=== PATIENT | male | born 2000 | race Caucasian/White ===

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

== ENCOUNTER 2023-02-09 21:02 | Emergency (ER) | payer OTHER, SELFPAY ==
--- NOTE | ~2023-02-09 | XR_ITS ---
EXAMINATION: XR knee LT min 4V DATE: 02/10/2023 01:13 INDICATION: Left knee pain. Fall. Laceration. TECHNIQUE: 4 views of left knee were obtained. COMPARISON: Left knee radiographs 08/23/2020 FINDINGS: Bone alignment is normal. No fracture. Joint spaces are normal. No knee joint effusion. The re is a laceration anterior to the tibial tubercle. IMPRESSION: 1. No fracture or radiopaque foreign body. Reviewed, dictated and finalized at location A.
[2023-02-09 21:06] VITALS: BP 132/78; PULSE 95; RESP 15; TEMP 36.4; O2SAT 100
--- NOTE | 2023-02-10 00:20 | ED.WOUNDLAC ---
HPI - Wound/Laceration General Chief Complaint: Wound/Laceration <ALEN Vaughan Last Filed: 02/10/23 02:20> Stated Complaint: cut on knee from unloading a fridge at work <ALEN Vaughan Last Filed: 02/10/23 02:20> Time Seen by Provider: 02/10/23 00:11 <ALEN Vaughan Last Filed: 02/10/23 02:20> History of Present Illness HPI narrative: 22-year-old male reports for evaluation for a laceration to his left knee that occurred prior to arrival. Patient states he was unloading things off the back of a pickup truck at work, there was water on the truck and he slipped off the truck. States he landed on his knees. He is reporting pain to his knee and a 1.5 cm laceration. States his tetanus is up-to-date. Reports he did not hit his head on the ground but did hit his head on a refrigerator on the back of the truck when he fell. He denies loss of consciousness, vision changes, focal numbness or weakness. Denies other injuries acquired in the fall. <ALEN Vaughan Last Filed: 02/10/23 02:20> Related Data Allergies/Adverse Reactions: Allergies Allergy/AdvReac Type Severity Reaction Status Date / Time No Known Allergies Allergy Verified 02/10/23 00:32 <ALEN Vaughan Last Filed: 02/10/23 02:20> Review of Systems Review of Systems: CONSTITUTIONAL: Denies fever, chills EYES: Denies visual changes, redness, or discharge. ENT: Denies rhinorrhea, congestion, sore throat, or otalgia. CARDIOVASCULAR: Denies chest pain, palpitations, or edema. RESPIRATORY: Denies cough or dyspnea. GASTROINTESTINAL: Denies abdominal pain, nausea, vomiting, or diarrhea. GENITOURINARY: Denies dysuria or hematuria. SKIN: See HPI MUSCULOSKELETAL: Denies back pain, joint pain, or myalgia. NEUROLOGIC: See HPI PSYCHIATRIC: Denies anxiety or depression. <ALEN Vaughan Last Filed: 02/10/23 02:20> [facility] Family History Family History: Family History Other Family history non-contributory <Shivani Campos PA-C - Last Filed: 02/10/23 02:20> Exam Narrative: GENERAL: Well-appearing, in no acute distress. Patient resting comfortably in exam chair. He is pleasant and conversational. HEAD: Normocephalic EYES: PERRLA, EOMI ENT: Nares clear. Mucous membranes moist. Oropharynx without tonsillar hypertrophy exudate or other lesions. No hemotympanum. No raccoon eyes or ricci sign. NECK: Supple. No midline cervical spinous tenderness, step-offs or deformities. CHEST: No respiratory distress. Clear to auscultation, no adventitious breath sounds. HEART: Regular rate and rhythm. No murmur heard. Normal peripheral pulses. ABDOMEN: Soft, nontender, normal active bowel sounds. EXTREMITIES: Tenderness to the left knee medial joint line with full range of motion. Patient ambulatory with no difficulty. DP pulse 2+. Sensation intact. SKIN: 1.5 cm linear laceration to the left anterior knee without visualization of deep structures or foreign bodies. NEURO: No focal deficits. Alert and oriented x3. Cranial nerves II through XII intact. Strength 5/5 in BUE and BLE. Sensation intact. PSYCH: Normal mood and affect. <Shivani Campos PA-C - Last Filed: 02/10/23 02:20> Course [employer]ER/PA Physician Supervision This is a was performed by both a physician and an APC. I performed all aspects of the MDM as documented w/ the following additions: 22-year-old presenting with knee laceration. Laceration was repaired the patient was discharged. All questions answered. Patient in agreement w/ disposition. <Ashok Che MD - Last Filed: 02/10/23 06:30> Vital Signs Vital signs: Vital Signs Temperature 97.6 F 02/09/23 21:06 Pulse Rate 95 02/09/23 21:06 Respiratory Rate 15 02/09/23 21:06 Blood Pressure 132/78 02/09/23 21:06 Pulse Oximetry 100 02/09/23 21:06 Oxygen Delivery Room Air
[2023-02-10 02:28] VITALS: BP 132/78; PULSE 78; RESP 15; TEMP 36.5; O2SAT 100
== END 2023-02-10 02:29 | disposition home or self-care (01) ==
PROVIDERS: Emergency Provider Physician Assistant; PCP Family Medicine
DX: S81.012A Laceration without foreign body, left knee, initial encounter (principal); S80.02XA Contusion of left knee, initial encounter; S09.90XA Unspecified injury of head, initial encounter; W17.89XA Other fall from one level to another, initial encounter
CPT/HCPCS: 12013; 12031; 73564; 99283

== ENCOUNTER 2024-02-15 05:53 | Emergency (ER) | payer OTHER, SELFPAY ==
[2024-02-15] VITALS (11 sets, daily range): BP systolic 133–157; BP diastolic 63–93; PULSE 66–99; RESP 12–20; TEMP 36.6; O2SAT 96–100
--- NOTE | ~2024-02-15 | XR_ITS ---
EXAMINATION: XR chest 1V portable DATE: 02/15/2024 06:40 INDICATION: Chest pain. Shortness of breath. TECHNIQUE: A single frontal view of the chest was obtained. COMPARISON: Chest 2 views 05/16/2013 FINDINGS: There is no pneumonia, pleural effusion, or pneumothorax. The heart size is normal. IMPRESSION: 1. No acute cardiopulmonary disease. Reviewed, dictated and finalized at location A.
--- NOTE | 2024-02-15 05:54 | ECG_ITS ---
Test Date: 2024-02-15 06:04:45 Measurements Intervals [place] Rate: 75 P: 32 ND: 166 QRS: -18 QRSD: 97 T: 26 QT: 373 QTc: 417 Interpretive Statements SINUS RHYTHM NONSPECIFIC ST ELEVATION [0.05+ mV ST ELEVATION] ABNORMAL ECG Electronically Signed On 02-15-2024 11:00:34 CDT by Slava Rawls M.D.
--- NOTE | 2024-02-15 06:04 | ED.GENADULT ---
HPI - General Adult General Chief complaint: Chest Pain <Ashok Che MD - Last Filed: 02/15/24 19:05> Stated complaint: CP, sob <Ashok Che MD - Last Filed: 02/15/24 19:05> Time Seen by Provider: 02/15/24 06:11 <Ashok Ceh MD - Last Filed: 02/15/24 19:05> History of Present Illness HPI narrative: This is a 23-year-old male presenting ED with chief complaint of chest pain and shortness of breath. 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 Denied time there inhaling artificial smoke. After that the patient started developing aching pain in the center of his chest. It is nonradiating, 4 out 10 intensity and constant. He feels like it has been getting worse throughout the week. He has never had pain like this before exacerbating or alleviating factors. Patient denies fevers chills viral symptoms, productive cough, lower extremity edema, risk factors for DVT, nausea vomiting or diarrhea. <Ashok Che MD - Last Filed: 02/15/24 19:05> Related Data Allergies/adverse reactions: Allergies Allergy/AdvReac Type Severity Reaction Status Date / Time No Known Allergies Allergy Verified 02/15/24 13:56 <Ashok Che MD - Last Filed: 02/15/24 19:05> [facility] Past Medical History Medical History: Medical History Allergic rhinitis Freddie-Schlatter's disease <Ashok Che MD - Last Filed: 02/15/24 19:05> Surgical History Surgical History: Surgical History History of oral surgery cyst removal X2 2014 <Ashok Che MD - Last Filed: 02/15/24 19:05> Family History Family History: Family History Father No problems noted. Mother No problems noted. Other Family history non-contributory <Ashok Che MD - Last Filed: 02/15/24 19:05> Social History Social History: Social History Smoking status: Never smoker Alcohol intake: never Substance use: never Substance use type: does not use Do You Feel Safe in your Home?: Yes Lack of Transportation: No Lack of Food: Never True Current Housing: I Have Housing Concerned About Future Housing: No Difficulty Paying Gas/Electric Bills: No Difficulty Paying for Meds: No Currently Unemployed: No Education: Associate Degree Difficulty w/ Childcare or Family Care: No Living arrangements: with family Occupation/Education: occupation Gender identity (if verbalized by the patient): Male Sexual Orientation (if Verbalized by the Patient): Straight or Heterosexual <Ashok Che MD - Last Filed: 02/15/24 19:05> Exam Narrative: APPEARANCE: No apparent distress. Head: atraumatic. EYES: EOMI, NOSE: Atraumatic NECK: Trachea midline RESPIRATORY: No tachypnea, no wheezing or rhonchi, 100% on room air CARDIOVASCULAR: RRR, no peripheral ABDOMINAL: Non-distended soft nontender MUSCULOSKELETAl: No obvious deformities NEURO: Alert. Moving 4/4 extremities SKIN:: Warm, dry. Normal color PSYCHIATRIC: Normal affect <Ashok Che MD - Last Filed: 02/15/24 19:05> Course Course Emergency Course: Patient is signed out to me pending 2nd troponin. He is being treated for chemical pneumonitis bronchospasm. Second troponin is normal. I did reassessed patient at bedside after giving additional albuterol treatment. He is resting comfortably. He states he continues to have some difficulty breathing and lung irritation but is amenable to and stable for discharge. He has an appointment this afternoon at 1:00 p.m. with his primary care physician Dr Batista. <Huong Feng MD - Last Filed: 02/15/24 09:37> Vital Signs Vital signs: Vital Signs Pulse Rate 77 02/15/24 06:01 Respiratory Rate 12 02/15/24 06:01 Blood Pressure 142/93 H 0
[2024-02-15 06:17] LABS: Basophils Percent Auto 0.2 % (0.2-1.2); Eosinophils Absolute Auto 0.2 K/mm3 (0-0.3); Eosinophils Percent Auto 2.3 % (0-4.4); Hemoglobin 16.4 g/dL (14.0-18.0); Immature Granulocyte Absolute 0.01 K/mm3 (0.00-0.031); Immature Granulocyte Percent A 0.1 % (0-0.5); Lymphocytes Absolute Auto 2.69 K/mm3 (0.9-3.2); Lymphocytes Percent Auto 32.9 % (18.3-44.2); Mean Corpuscular HGB Conc 33.5 g/dl (32-36); Mean Corpuscular Hemoglobin 27.8 pg (26-34); Mean Corpuscular Volume 83.1 fl (80-100); Mean Platelet Volume 10.7 fl (7.4-10.4); Monocytes Absolute Auto 0.6 K/mm3 (0.1-0.6); Monocytes Percent Auto 6.7 % (2.6-8.5); Neutrophils Absolute Auto 4.7 K/mm3 (1.3-6.7); Neutrophils Percent Auto 57.8 % (45.5-73.1); Platelet Count Result 257 k/mm3 (150-375); Red Cell Distribution Width 13.7 % (11.5-14.5); White Blood Count 8.2 K/mm3 (4.5-10.0)
[2024-02-15] MEDS: ACETAMINOPHEN 500 MG TABLET 1000 MG PO (06:18)
[2024-02-15] MEDS: ASPIRIN 81 MG CHEWABLE TABLET 324 MG PO (06:18)
[2024-02-15] MEDS: dexAMETHasone SOD PHOS INJ 10 MG/ML 1 ML VIAL IV PUSH (06:19)
[2024-02-15] MEDS: KETOROLAC 15 MG/ML VIAL (*BKC) IV PUSH (06:19)
[2024-02-15] MEDS: MAGNESIUM SULF 2 GM/WATER 50ML 2 GM/50 ML BAG IVPB (06:19)
[2024-02-15] MEDS: IPRATROPIUM 0.5 MG/ALBUTEROL SULFATE 2.5 MG AMPUL.NEB 3 ML 12 ML INHALATION (06:26)
[2024-02-15 06:30] LABS: INR 0.9
[2024-02-15 06:31] LABS: Partial Thromboplastin Time 30.7 Seconds (22.3-36.8)
[2024-02-15 06:33] LABS: Base Excess ABG 0.1 mEq/l (+/-2.0); Fractional Inspired Oxygen 21 %; HCO3 ABG 23.6 mEq/l (22.0-26.0); Oxygen Content ABG 22.1 %vol (16.0-22.0); Oxygen Saturation ABG 97.7 % (95.0-100.0); Oxyhemoglobin 97.2 % THb (90.0-100.0); PCO2 ABG 35.5 mmHg (35.0-45.0); PO2 ABG 98.2 mmHg (80.0-100.0); PO2 FiO2 Ratio Arterial Blood 4.68 %; Total Hemoglobin 16.1 g/dL (12.0-18.0); pH ABG 7.441 (7.350-7.450)
[2024-02-15 06:34] LABS: Modified Allen's Test Pass; Site Drawn RIGHT RADIAL
[2024-02-15 06:39] LABS: Troponin I < 0.012 ng/mL (0.000-0.034)
[2024-02-15 06:54] LABS: Influenza A QL RT-PCR Negative (Negative); Influenza B QL RT-PCR Negative (Negative); RSV RNA, RT-PCR Negative (Negative); SARS-CoV-2 RNA PCR Negative (Negative)
[2024-02-15 08:07] LABS: Alanine Aminotransferase 23 U/L (6-50); Albumin Level 4.7 g/dL (3.5-5.1); Alkaline Phosphatase 97 U/L (38-126); Anion Gap 13 mmol/L (4-12); Aspartate Amino Transferase 23 U/L (17-59); Bilirubin,Total 0.4 mg/dL (0.2-1.3); Blood Urea Nitrogen 13 mg/dL (9-20); Calcium 9.4 mg/dL (8.4-10.2); Carbon Dioxide 25 mmol/L (22-30); Chloride 102 mmol/L (98-107); Estimated CRCL calculation 128 ml/min; Estimated Glomerular Filt Rate > 60; Glucose 101 mg/dL (65-110); Lipase 87 U/L (23-300); Potassium 3.7 mmol/L (3.4-5.0); Sodium 140 mmol/L (137-145)
[2024-02-15] MEDS: ALBUTEROL SULFATE NEB 2.5 MG/3 ML INH INHALATION (08:07)
--- NOTE | 2024-02-15 08:35 | ECG_ITS ---
Test Date: 2024-02-15 08:45:55 Measurements Intervals [place] Rate: 96 P: 30 AR: 124 QRS: -16 QRSD: 95 T: 29 QT: 369 QTc: 467 Interpretive Statements SINUS RHYTHM LEFTWARD AXIS NONSPECIFIC ST ABNORMALITY ABNORMAL ECG Electronically Signed On 02-15-2024 11:01:58 CDT by Slava Rawls M.D.
[2024-02-15 09:15] LABS: Troponin I < 0.012 ng/mL (0.000-0.034)
== END 2024-02-15 09:53 | disposition home or self-care (01) ==
PROVIDERS: Emergency Provider Emergency Medicine; PCP Family Medicine
DX: R07.89 Other chest pain (principal); J68.0 Bronchitis and pneumonitis due to chemicals, gases, fumes and vapors; Z20.822 Contact with and (suspected) exposure to COVID-19
CPT/HCPCS: 36415; 36600; 71045; 71275; 80053; 82805; 83690; 84484; 85025; 85610; 85730; 87637; 93005; 94640; 96365; 96366; 96375; 99284; A9270; J1100; J1885; J3475; Q9967

== ENCOUNTER 2024-02-15 15:27 | Outpatient (CLI) | payer OTHER, SELFPAY ==
--- NOTE | ~2024-02-15 | CT_ITS ---
EXAMINATION: CTA chest PE protocol DATE: 02/15/2024 16:04 INDICATION: Shortness of breath. TECHNIQUE: Computed tomography angiography (CTA) of the chest was performed with 100 mL Omnipaque-350 intravenous contrast timed to evaluate the pulmonary arteries. Coronal maximum intensity projection 3D-reconstructions were created by the technologist. Automated exposure control and iterative reconst ruction technique were employed. The dose-length product was 757.47 mGy-cm. COMPARISON: None. FINDINGS: There is no pneumonia or pleural effusion. The heart size is normal. No pericardial effusio n. There is no pulmonary embolus. There is bilateral gynecomastia. There is mild chronic anterior wed ging of multiple vertebral bodies. IMPRESSION: 1. No pulmonary embolus. Reviewed, dictated and finalized at location A. IMPRESSION: 1. No pulmonary embolus.
== END 2024-02-15 15:28 | disposition home or self-care (01) ==
LOC: ANHIMG 15:30
PROVIDERS: PCP Family Medicine; Visit Provider Family Medicine
DX: R06.02 Shortness of breath (principal)
CPT/HCPCS: 71275; Q9967

== ENCOUNTER 2024-02-26 13:26 | Outpatient (CLI) | payer OTHER, SELFPAY ==
--- NOTE | 2024-03-01 11:22 | WPDPFTINT ---
PFT Procedure Performed PFT Procedure Performed Spirometry with Pre/Post Bronchodilator Plethysmography (Lung Vol) Diffusing Cap (DLCO) Flow Vol Loop PFT Interpretation This is a pulmonary function test with pre and post-bronchodilator spirometry, plethysmography and diffusing capacity. The test was performed and results interpreted in accordance with the 2019 and 2005 ATS/ERS Task Force guidelines respectively using the Global Lung Function Initiative-2012 reference equations. Patient demonstrated good effort and cooperation. Reproducibility criteria were met. The quality of the pre bronchodilator spirometry maneuver was Grade A and post bronchodilator spirometry maneuver was Grade A. Findings: Spirometry: The contour the inspiratory and expiratory flow tracing are normal. The pre bronchodilator FVC is 6.06 L, 107% predicted. The pre bronchodilator FEV1 is 4.79 L, 100% predicted. The pre bronchodilator FEV1: FVC ratio 79%. The post bronchodilator FVC is 6.07 L, representing no change. The post bronchodilator FEV1 is 4.90 L, representing a 2% increase. The post bronchodilator FEV1: FVC ratio is 81%. Plethysmography: The total lung capacity is 7.63 L, 108% predicted. The functional residual composite a capacity is 2.70 L, 80% predicted. The residual volume is 1.52 L, 103% predicted. Diffusing capacity: The diffusing capacity unadjusted for hemoglobin and carboxyhemoglobin is 38.9, 103% predicted. The diffusing capacity adjusted for alveolar volume is 7.69, 143% predicted. Impression: The spirometry is normal without evidence of an obstructive abnormality. There is no significant improvement after inhaling a single dose of albuterol. The lung volumes are normal. The diffusing capacity unadjusted for hemoglobin and carboxyhemoglobin is normal and is increased when adjusted for alveolar volume. There are no prior studies for comparison
== END 2024-02-26 13:27 | disposition home or self-care (01) ==
LOC: ANHPFT 13:27
PROVIDERS: PCP Family Medicine; Visit Provider Family Medicine
DX: R06.02 Shortness of breath (principal)
CPT/HCPCS: 94060; 94726; 94729

== ENCOUNTER 2024-05-16 12:49 | Outpatient (CLI) | payer OTHER, SELFPAY ==
[2024-05-16] MEDS: METHACHOLINE CHLORIDE 18 ML VIAL.NEB INHALATION (13:13)
--- NOTE | 2024-05-16 16:02 | WPDMETH ---
Methacholine Procedure Perform Procedure Performed Methacholine Challenge Methacholine Challenge Methacholine Challenge: This is a methacholine challenge test. The test was performed and interpreted in accordance with the 2017 ERS technical standard, endorsed by the ATS, using the GLI 2012 reference equations. Testing was performed with increasing doses of nebulized methacholine following a quadrupling dosage protocol. The methacholine dose was delivered via the logolineupist nebulizer using a 1-minutes tidal breathing protocol. The best post-methacholine FEV1 values were used to determine the change from the post diluent FEV1. The delivered dose of methacholine was used to calculate the provocative dose causing a 20% fall in FEV1 (PD20). Findings: Baseline FEV1 4.48 L, 93% predicted. Post diluent FEV1 4.60 L Post 1.81 mcg methacholine FEV1 4.60 L, decreased 0% Post 7.26 mcg methacholine FEV1 4.61 L, decreased 0% Post 29.03 mcg methacholine FEV1 4.52 L, decreased 2% Post 116.1 mcg methacholine FEV1 4.47 L, decreased 3% Post 464.4 mcg methacholine FEV1 4.46 L, decreased 3% Post albuterol nebulization FEV1 4.53 L Impression: The PD20 is > 400 mcg which is categorized as normal airway hyperresponsiveness. There are no prior methacholine challenge studies for comparison
== END 2024-05-16 12:50 | disposition home or self-care (01) ==
LOC: ANHPFT 12:49
PROVIDERS: PCP Family Medicine; Visit Provider Nurse Practitioner Family
DX: R06.09 Other forms of dyspnea (principal)
CPT/HCPCS: 94070; J7674

== ENCOUNTER 2025-02-09 11:08 | Emergency (ER) | payer OTHER, SELFPAY ==
--- NOTE | 2025-02-09 11:10 | ED.DIZZY ---
HPI - Dizziness General Chief Complaint: Dizziness Stated Complaint: Dizzy Time Seen by Provider: 02/09/25 11:25 Source: patient Mode of arrival: ambulatory Limitations: no limitations History of Present Illness HPI Narrative: Rory is a 24-year-old male patient presenting to the clinic today with complaints of dizziness, blurred vision, brain fog, and temporal headache intermittently x3 weeks. He reports he feels as though he is having dizziness (feels drunk), forgetting things, having blurred vision while having headache intermittently. Denies any the symptoms currently. Checked his blood sugar and it was 96. 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 Denies any chest pain or shortness of breath during these episodes. Has not taken any medications to treat his symptoms. Past medical history is asthma. Related Data Home Medications ?Medication ?Instructions ?Recorded ?Confirmed ?Last Taken ?Type No Home Medications 02/09/25 02/09/25 Unknown History Allergies Allergy/AdvReac Type Severity Reaction Status Date / Time No Known Allergies Allergy Verified 02/09/25 11:23 Review of Systems Review of Systems: Pertinent positives per HPI. Patient denies any fever, chills, rash, cough, runny nose, sore throat, shortness of breath, chest pain, palpitations, nausea, vomiting, diarrhea, constipation, abdominal pain, or any urinary issues. [facility] Past Medical History Medical History Freddie-Schlatter's disease Allergic rhinitis Surgical History Surgical History History of oral surgery cyst removal X2 2014 Family History Family History Father No problems noted. Mother No problems noted. Other Family history non-contributory Social History Social History Smoking status: Never smoker Alcohol intake: never Substance use: never Substance use type: does not use Do You Feel Safe in your Home?: Yes Lack of Transportation: No Lack of Food: Never True Current Housing: I Have Housing Concerned About Future Housing: No Difficulty Paying Gas/Electric Bills: No Difficulty Paying for Meds: No Currently Unemployed: No Education: Associate Degree Difficulty w/ Childcare or Family Care: No Living arrangements: with family Occupation/Education: occupation Gender identity (if verbalized by the patient): Male Sexual Orientation (if Verbalized by the Patient): Straight or Heterosexual Comments At the time of my signature, I reviewed and agree with the nursing past medical, surgical, social, and family history. There is no relevant family history pertinent to the patient complaint. Exam Narrative: General: Well-developed, well nourished, in no apparent distress Head: Normocephalic, atraumatic Eyes: Pupils equally round and reactive to light bilaterally, EOM intact, sclera and conjunctive clear, no discharge, lids normal Ears: TMs intact and clear, ear canals ceruminous, no drainage, grossly hearing normal. Nose: Nares patent, no discharge, no inflammation, no sinus tenderness. Mouth: Oropharynx without lesions or masses, good dentition, MMM. Tongue midline, even rise and fall of uvula Neck: Supple, trachea midline, no enlargement of anterior or posterior cervical nodes, no thyroid masses or goiter palpable. Cardio: Regular rate and rhythm, s1 and s2 normal, no murmur appreciated. Resp: Clear to auscultation bilaterally anteriorly and posteriorly, no rhonchi, rales, wheezing or rubs Musculoskeletal: No deformity, non-tender to palpation, grossly normal range of motion, muscle strength strong and equal, peripheral pulse strong, no edema, no cyanosis, normal gait and station Neuro: Alert and oriented x4 with normal speech, no focal deficits, cranial nerves I through XII intact, muscle strength 5 out of 5, sensation intact bilaterally, negative Romberg test Course Course Emergency Course: Portions of this record may have been created with voice recognition software. Level of Care: Express Care Visit Vital Signs Vital signs: Vital Signs Temperature 36.4 C L 02/09/25 11:23 Pulse Rate 82 02/09/25 11:23 Respiratory Rate 18 02/09/25 11:23 Blood Pressure 146/73 H 02/09/25 11:23 Pulse Oximetry 98 02/09/25 11:23 Oxygen Delivery Room Air 02/09/25 11:23 Temperature 36.4 C L 02/09/25 11:23 Pulse Rate 82 02/09/25 11:23 Respiratory Rate 18 02/09/25 11:23 Blood Pressure 146/73 H 02/09/25 11:23 Pulse Oximetry 98 02/09/25 11:23 Oxygen Delivery Room Air 02/09/25 11:23 Vital signs reviewed Transfer Transfered to: [facility] Transportation: Other (Private car) Transfer rationale: Dizziness, brain fog, blurred vision, temporal headache Accepting physician: Rupal-TERA Transfer comments: Private car MDM - Dizziness MDM Narrative Medical decision making narrative: At the time of visit patient is resting comfortably on the exam table. Patient appears to be nontoxic. Complaints of dizziness, blurred vision, brain fog, and temporal headache intermittently x3 weeks. He reports he feels as though he is having dizziness (feels drunk), forgetting things, having blurred vision while having headache intermittently. Denies any the symptoms currently. Checked his blood sugar and it was 96. 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 Denies any chest pain or shortness of breath during these episodes. Has not taken any medications to treat his symptoms. Past medical history is asthma. Plan: Neuro exam negative in the clinic today. Due to patient's symptoms recommend transfer to the ER for further evaluation. Patient would like to go to [facility]. Contacted Rupal HALEY at [facility] and report was given for continuity of care. Rupal accepts patient for transfer Differential Diagnosis Differential diagnosis: Likely adverse reaction to drug, benign paroxysmal positional vertigo, orthostatic hypotension, vertebral basilar insufficiency, cerebrovascular accident, acute vestibular neuronitis, transient cerebral ischemia and other (Electrolyte imbalance, hypoglycemia, hyperglycemia, vertigo) Discharge Plan Discharge Clinical Impression: Dizziness, Headache, Blurred vision, Brain fog Patient Disposition: Acute Care Hospital Condition: Stable Instructions: Antibiotic Form Patient Language: Luxembourgish Prescriptions: No Action No Home Medications Follow-up/Referrals: Antione Batista MD [Primary Care Provider] - Time of Disposition: 11:40 Quality NIHSS Nursing Documentation ED NIHSS nursing documentation: reviewed/agree
[2025-02-09 11:23] VITALS: BP 146/73; PULSE 82; RESP 18; TEMP 36.4; O2SAT 98
--- OUTSIDE RECORDS SUMMARY | 2025-02-09 11:27 | XMS_ITS | Clinical Summary ---
Author Organization [facility] Address [facility] [place] [address] Care Team Providers Care Sawmill Tally Clerk Name Role Phone Antione Batista MD Primary Care Provider [phone] Allergies No known active allergies Social History Tobacco Use Types Packs/Day Years Used Date Smoking Tobacco: Never Smokeless Tobacco: Never Tobacco Cessation:Counseling Given: Not Answered Alcohol Use Standard Drinks/Week Comments Not Currently 0 (1 standard drink = 0.6 oz pur e alcohol) Sex and Gender Information Value Date Recorded Sex Assigned at Not on file Legal Sex Male 11:36 AM CDT Gender Identity Not on file Sexual Orientation Not on file Last Filed Vital Signs Vital Sign Reading Time Taken Comments Blood Pressure 125/82 02/07/2024 2:36 PM CDT Pulse 65 02/07/2024 2:36 PM CDT Temperature 37.3 C (99.1 F) 02/07/2024 2:36 PM CDT Respiratory Rate 18 02/07/2024 2:36 PM CDT Oxygen Saturation 98% 02/07/2024 2:36 PM CDT Inhaled Oxygen Concentration - - Weight 110.5 kg (243 lb 9.7 oz) 024 12:24 PM CDT Height 175.3 cm (5' 9) 02/07/2024 12:2 4 PM CDT Body Mass Index 35.97 02/07/2024 12:24 PM CDT Plan of Treatment Health Maintenance Due Date Last Done Comments Annual Physical 2005 HPV Vaccines (1 - Male 3-dos e series) 2017 Meningococcal B Vaccine (1 o f 2 - Standard) 2018 Hepatitis C 2020 DTaP, Tdap and Td Vaccines ( 1 - Tdap) 2021 Hepatitis B Vaccines (1 of 3 - 19+ 3-dose series) 2021 COVID-19 Vaccine (1 - 2023-2 5 season) 2024 PHQ-2 (Physician [place]) 06/29/2024 Meningococcal Vaccine Aged Out No meño juan eligible based on patient's age to complete this topic Pneumococcal Vaccine: Pediat rics (0 to 5 Years) and At-Risk Patients (6 to 49 Years) Aged Out No longer eligible b ased on patient's age to complete this topic RSV Immunizations Under 20 Months Aged Out No longer eligible based on patient's age to complete this topic Insurance Care Teams Sawmill Tally Clerk Relationship Specialty Start Date End Date Antione Batista MD [address] [place] [address] [id number] PCP - General FAMILY PRACTICE 02/07/24
--- OUTSIDE RECORDS SUMMARY | 2025-02-09 11:27 | XMS_ITS | Clinical Summary ---
Author Organization [facility] [address] [place] [address] Care Team Providers Care Electronic Maintenance Supervisor Name Role Phone Antione Batista MD Primary Care Provider [phone] Allergies No known active allergies Medications No known medications Active Problems Problem Noted Date Diagnosed Date Chronic reactive otitis externa of right ear Surgical History Surgery Date Site/Laterality Comments CYST REMOVAL Medical History Medical History Date Comments Allergic rhinitis Family History Medical History Relation Name Comments Heart disease Paternal Grandfather Relation Name Status Comments Paternal Grandfather Social History Tobacco Use Types Packs/Day Years Used Date Smoking Tobacco: Never Smokeless Tobacco: Never Personal Safety Answer Date Recorded Getting School Help Needed Not on file 08/29 Sex and Gender Information Value Date Recorded Sex Assigned at Not on file Legal Sex Male 2:01 PM SALES COMMUNICATIONS MANAGER Gender Identity Not on file Sexual Orientation Not on file Obstetrics History Last Filed Vital Signs Vital Sign Reading Time Taken Comments Blood Pressure - - Pulse - - Temperature 36.8 C (98.2 F) 06/18/2021 2:04 PM SALES COMMUNICATIONS MANAGER Respiratory Rate - - Oxygen Saturation - - Inhaled Oxygen Concentration - - Weight 90.7 kg (200 lb) 06/18/2021 2:04 PM SALES COMMUNICATIONS MANAGER Height 180.3 cm (5' 11) 06/18/2021 2:04 PM SALES COMMUNICATIONS MANAGER Body Mass Index 27.89 06/18/2021 2:04 PM SALES COMMUNICATIONS MANAGER Plan of Treatment Not on file Insurance [facility] CHOICE PLUS Care Teams Electronic Maintenance Supervisor Relationship Specialty Start Date End Date Antione Batista MD [address] [place] [id number] PCP - General Family Medicine 06/11/21
== END 2025-02-09 11:37 | disposition short-term general hospital (02) ==
PROVIDERS: Emergency Provider Nurse Practitioner Family; PCP Family Medicine
DX: R42 Dizziness and giddiness (principal); R51.9 Headache, unspecified; H53.8 Other visual disturbances; R41.89 Other symptoms and signs involving cognitive functions and awareness
CPT/HCPCS: 99212; 99213; G0463

== ENCOUNTER 2025-02-09 11:56 | Emergency (ER) | payer OTHER, SELFPAY ==
[2025-02-09] VITALS (8 sets, daily range): BP systolic 118–136; BP diastolic 59–79; PULSE 72–95; RESP 16–34; TEMP 36.3; O2SAT 96–98
--- NOTE | ~2025-02-09 | CT_ITS ---
EXAMINATION: CT brain wo con DATE: 02/09/2025 13:38 CDT INDICATION: Disequilibrium TECHNIQUE: Computed tomographic angiography (CTA) of the head was performed without and with 100 mL O mnipaque-350 intravenous contrast. The dose-length product was 681.00 mGy-cm. Volume-rendered and max imum intensity projection 3D reconstructions of the intracranial arteries were created by the technol desi on a separate workstation. COMPARISON: None. FINDINGS: No acute intracranial hemorrhage. No mass effect. No midline shift. No hydrocephalus. No skull fracture. Partial opacification of the paranasal sinuses. Visualized mastoid air cells are c lear. IMPRESSION: 1. No acute intracranial hemorrhage. No mass effect. Reviewed, dictated and finalized at location A.
--- NOTE | 2025-02-09 13:05 | ECG_ITS ---
Test Date: 2025-02-09 14:12:17 Measurements Intervals Errol Rate: 68 P: 29 NC: 168 QRS: -16 QRSD: 96 T: 16 QT: 380 QTc: 407 Interpretive Statements SINUS RHYTHM INCOMPLETE RIGHT BUNDLE BRANCH BLOCK BORDERLINE ECG Compared to ECG 02/15/2024 08:45:55 Incomplete right bundle-branch block now present Electronically Signed On 02-09-2025 14:49:44 CDT by Tristan Yan D.O.
--- OUTSIDE RECORDS SUMMARY | 2025-02-09 13:22 | XMS_ITS | Clinical Summary ---
Author Organization [facility] Address [facility] [place] [address] Care Team Providers Care Carpenter Packing Name Role Phone Antione Batista MD Primary Care Provider [phone] Allergies No known active allergies Social History [...] - 2023-2 5 season) 2024 PHQ-2 (Physician [place]) 06/29/2024 Meningococcal Vaccine Aged Out No meño [...] to complete this topic Insurance Care Teams Carpenter Packing Relationship Specialty Start Date End Date Antione Batista MD [address] [place] [address] [id number] PCP - General FAMILY PRACTICE 02/07/24
--- OUTSIDE RECORDS SUMMARY | 2025-02-09 13:22 | XMS_ITS | Clinical Summary ---
Author Organization [facility] [address] [place] [address] Care Team Providers Care Wire Frame Maker Name Role Phone Antione Batista MD Primary Care Provider [phone] Allergies No known active allergies Medications No [...] on file Legal Sex Male 2:01 PM NEWS LIBRARIAN Gender Identity Not on file Sexual Orientation Not on file Obstetrics History Last Filed Vital Signs Vital Sign Reading Time Taken Comments Blood Pressure - - Pulse - - Temperature 36.8 C (98.2 F) 06/18/2021 2:04 PM NEWS LIBRARIAN Respiratory Rate - - Oxygen Saturation - - Inhaled Oxygen Concentration - - Weight 90.7 kg (200 lb) 06/18/2021 2:04 PM NEWS LIBRARIAN Height 180.3 cm (5' 11) 06/18/2021 2:04 PM NEWS LIBRARIAN Body Mass Index 27.89 06/18/2021 2:04 PM NEWS LIBRARIAN Plan of Treatment Not on file Insurance [facility] CHOICE PLUS [facility] H[facility]/PPO Address: [facility] [id number] [place] [id number] Care Teams Wire Frame Maker Relationship Specialty Start Date End Date Antione Batista MD [address] [place] [id number] PCP - General Family Medicine 06/11/21
--- NOTE | 2025-02-09 13:37 | ED.GENADULT ---
HPI - General Adult General Chief complaint: Dizziness Stated complaint: from , dizziness, fatigue, brain fog Time Seen by Provider: 02/09/25 13:01 History of Present Illness HPI narrative: This is a 24-year-old male presenting ED for disequilibrium. Patient says that over the last 2 weeks he has been having 5-10 minute episodes of disequilibrium or the ?feeling like I am drunk. ? These occur 5-6 times per day. They are associated with blurry vision and brain fog. Patient says that feels foggy because he had to look up the zip code while at the gas station the other day. He cannot identify a trigger to the episodes. He does not have any double vision dysarthria dysphagia loss of coordination or weakness to any extremity. He does not currently have any symptoms. He notes he has frequent cerumen impaction. He does not have any hearing loss. He was referred to the ER from urgent care. Related Data Home Medications ?Medication ?Instructions ?Recorded ?Confirmed ?Last Taken ?Type No Home Medications 02/09/25 02/09/25 Unknown History Allergies Allergy/AdvReac Type Severity Reaction Status Date / Time No Known Allergies Allergy Verified 02/09/25 12:44 [facility] Past Medical History Medical History Freddie-Schlatter's disease Allergic rhinitis Surgical History Surgical History History of oral surgery cyst removal X2 2014 Family History Family History Father No problems noted. Mother No problems noted. Other Family history non-contributory Social History Social History Smoking status: Never smoker Alcohol intake: never Substance use: never Substance use type: does not use Do You Feel Safe in your Home?: Yes Lack of Transportation: No Lack of Food: Never True Current Housing: I Have Housing Concerned About Future Housing: No Difficulty Paying Gas/Electric Bills: No Difficulty Paying for Meds: No Currently Unemployed: No Education: Associate Degree Difficulty w/ Childcare or Family Care: No Living arrangements: with family Occupation/Education: occupation Gender identity (if verbalized by the patient): Male Sexual Orientation (if Verbalized by the Patient): Straight or Heterosexual Exam Narrative: APPEARANCE: No apparent distress. Well appearing Head: atraumatic. Cerumen impaction of the right ear EYES: EOMI, NOSE: Atraumatic NECK: Trachea midline RESPIRATORY: No increased rate of breathing clear to auscultation CARDIOVASCULAR: RRR, no peripheral edema ABDOMINAL: Non-distended soft nontender MUSCULOSKELETAl: No obvious deformities NEURO: Alert. Cranial nerves 2-12 grossly intact. Sensation light touch, motor function cerebellar function intact for 4 extremities. Gait exam was normal. SKIN:: Warm, dry. Normal color PSYCHIATRIC: Normal affect Course Vital Signs Vital signs: Vital Signs Temperature 97.3 F L 02/09/25 11:59 Pulse Rate 72 02/09/25 11:59 Respiratory Rate 18 02/09/25 11:59 Blood Pressure 133/66 02/09/25 11:59 Pulse Oximetry 98 02/09/25 11:59 Oxygen Delivery Room Air 02/09/25 11:59 Temperature 97.3 F L 02/09/25 11:59 Pulse Rate 75 02/09/25 12:50 Respiratory Rate 18 02/09/25 11:59 Blood Pressure 133/66 02/09/25 11:59 Pulse Oximetry 98 02/09/25 11:59 Oxygen Delivery Room Air 02/09/25 11:59 Medical Decision Making [facility] Narrative Medical decision making narrative: -Course: 24-year-old male presenting with intermittent disequilibrium or last 2 weeks. Neurologic exam is normal. He does have cerumen impaction in the right ear which may be contributing to his symptoms. CT brain was obtained which was normal. Screening lab work was normal. Patient is asymptomatic throughout his stay. He will be discharged follow-up with primary care physician for further management. -DDX includes but is not limited to: Disequilibrium, vertigo, dehydration Vital Signs Vital Signs: Vital Signs Temperature 97.3 F L 02/09/25 11:59 Pulse Rate 72 02/09/25 11:59 Respiratory Rate 18 02/09/25 11:59 Blood Pressure 133/66 02/09/25 11:59 Pulse Oximetry 98 02/09/25 11:59 Oxygen Delivery Room Air 02/09/25 11:59 Temperature 97.3 F L 02/09/25 11:59 Pulse Rate 75 02/09/25 12:50 Respiratory Rate 18 02/09/25 11:59 Blood Pressure 133/66 02/09/25 11:59 Pulse Oximetry 98 02/09/25 11:59 Oxygen Delivery Room Air 02/09/25 11:59 Lab Data 02/09/25 14:00 02/09/25 14:00 Labs: Lab Results 02/09/25 Range/Units 14:00 WBC 8.5 (4.5-10.0) K/mm3 RBC 5.84 (4.6-6.20) M/mm3 Hgb 15.8 (14.0-18.0) g/dL Hct 48.1 (42.0-52.0) % MCV 82.4 (80-100) fl MCH 27.1 (26-34) pg MCHC 32.8 (32-36) g/dl RDW 13.4 (11.5-14.5) % Plt Count 238 (150-375) k/mm3 MPV 10.4 (7.4-10.4) fl Immature Gran % (Auto) 0.4 (0-0.5) % Neut % (Auto) 63.1 (45.5-73.1) % Lymph % (Auto) 27.9 (18.3-44.2) % [place] % (Auto) 6.2 (2.6-8.5) % Eos % (Auto) 2.0 (0-4.4) % Baso % (Auto) 0.4 (0.2-1.2) % Lymph # (Auto) 2.37 (0.9-3.2) K/mm3 [place] # (Auto) 0.5 (0.1-0.6) K/mm3 Eos # (Auto) 0.2 (0-0.3) K/mm3 Baso # (Auto) 0.0 (0.0-0.1) K/mm3 Abs Immat Gran (auto) 0.03 (0.00-0.031) K/mm3 Absolute Neuts (auto) 5.4 (1.3-6.7) K/mm3 Absolute Nucleated RBC 0.000 (0.0-0.012) K/mm3 Nucleated RBC % 0.0 (0.0-0.2) % Sodium 140 (137-145) mmol/L Potassium 4.1 (3.4-5.0) mmol/L Chloride 107 (98-107) mmol/L Carbon Dioxide 24 (22-30) mmol/L Anion Gap 9 (4-12) mmol/L BUN 10 (9-20) mg/dL Creatinine 0.80 (0.7-1.3) mg/dL Estim Creat Clear Calc 161 ml/min Estimated GFR > 60 (59 - ) Glucose 87 (65-110) mg/dL Calcium 9.3 (8.4-10.2) mg/dL Total Bilirubin 0.3 (0.2-1.3) mg/dL AST 35 (17-59) U/L ALT 27 (6-50) U/L Alkaline Phosphatase 72 (38-126) U/L Total Protein 7.7 (6.3-8.2) g/dL Albumin 4.5 (3.5-5.1) g/dL Discharge Plan Discharge Clinical Impression: Disequilibrium Patient Disposition: Home Condition: Stable Instructions: Antibiotic Form, Dizziness (ED) Additional Instructions: Please follow-up with your primary care physician for further management. Return to the ED if you develop slurred speech weakness to any extremity or persistent symptoms. Patient Language: Romanian Prescriptions: No Action No Home Medications Follow-up/Referrals: Antione Batista MD [Primary Care Provider] - 2 Days
[2025-02-09 14:20] LABS: Hematocrit 48.1 % (42.0-52.0); Hemoglobin 15.8 g/dL (14.0-18.0); Immature Granulocyte Percent A 0.4 % (0-0.5); Lymphocytes Absolute Auto 2.37 K/mm3 (0.9-3.2); Mean Corpuscular HGB Conc 32.8 g/dl (32-36); Mean Corpuscular Hemoglobin 27.1 pg (26-34); Mean Corpuscular Volume 82.4 fl (80-100); Nucleated Red Blood Cells Absolute Auto 0.000 K/mm3 (0.0-0.012); Nucleated Red Blood Cells Perc 0.0 % (0.0-0.2); Platelet Count Result 238 k/mm3 (150-375); Red Blood Count 5.84 M/mm3 (4.6-6.20); White Blood Count 8.5 K/mm3 (4.5-10.0)
[2025-02-09 14:22] LABS: Alanine Aminotransferase 27 U/L (6-50); Albumin Level 4.5 g/dL (3.5-5.1); Alkaline Phosphatase 72 U/L (38-126); Anion Gap 9 mmol/L (4-12); Aspartate Amino Transferase 35 U/L (17-59); Bilirubin,Total 0.3 mg/dL (0.2-1.3); Blood Urea Nitrogen 10 mg/dL (9-20); Calcium 9.3 mg/dL (8.4-10.2); Carbon Dioxide 24 mmol/L (22-30); Chloride 107 mmol/L (98-107); Estimated CRCL calculation 161 ml/min; Estimated Glomerular Filt Rate > 60; Glucose 87 mg/dL (65-110); Potassium 4.1 mmol/L (3.4-5.0); Sodium 140 mmol/L (137-145); Total Protein 7.7 g/dL (6.3-8.2)
== END 2025-02-09 15:32 | disposition home or self-care (01) ==
PROVIDERS: Emergency Provider Emergency Medicine; PCP Family Medicine
DX: E87.8 Other disorders of electrolyte and fluid balance, not elsewhere classified (principal); I45.10 Unspecified right bundle-branch block
CPT/HCPCS: 36415; 70450; 80053; 85025; 93005; 99284